=== PATIENT | male | born 1965 | race Caucasian/White ===

== ENCOUNTER 2017-09-13 16:25 | Emergency (ER) | payer MEDICARE, OTHER ==
[~2017-09-13] VITALS: Ht 175.3 cm; Wt 68.0 kg
[2017-09-13] MEDS ORDERED: LANTUS100 UNITS/ (16:35)
[2017-09-13] MEDS ORDERED: HUMALOG100 UNIT/1 (16:35)
--- NOTE | 2017-09-14 16:21 | EKG ---
[facility] [address] [facility] [place], [place] [address] Signed Normal sinus rhythm Normal ECG No previous ECGs available Confirmed by DEJAN RHODES MD ([id number]) on 09/14/2017 4:21:11 PM Electronically Signed By: DEJAN RHODES MD 09/14/17 1621 PATIENT NAME: MARY LINO Electrocardiogram DATE OF : 67 PHYSICIAN: DEJAN RHODES MD REPORT #: [id number] REPORT IS CONFIDENTIAL AND NOT TO BE RELEASED WITHOUT AUTHORIZATION
== END 2017-09-13 18:11 | disposition home or self-care (01) ==
LOC: ED 16:25
DX: R55 Syncope and collapse (principal); E11.9 Type 2 diabetes mellitus without complications; Z79.4 Long term (current) use of insulin
CPT/HCPCS: 70450; 80053; 81001; 84484; 85025; 93005; 93010; 99284; G0480; J7030

== ENCOUNTER 2019-01-26 15:11 | Emergency (ER) | payer MEDICARE, OTHER ==
[~2019-01-26] VITALS: Ht 175.3 cm; Wt 67.0 kg
[~2019-01-26 15:11] MED LIST: HUMALOG100 UNIT/1; LANTUS100 UNITS/
[2019-01-26] MEDS ORDERED: LISINOPRIL5 MG PO (15:36)
[2019-01-26] MEDS ORDERED: ATORVASTATIN CA10 MG PO (15:36)
[2019-01-26] MEDS ORDERED: KEFLEX500 MG PO (16:10)
== END 2019-01-26 16:18 | disposition home or self-care (01) ==
LOC: ED 15:11
DX: E10.622 Type 1 diabetes mellitus with other skin ulcer (principal); L97.519 Non-pressure chronic ulcer of other part of right foot with unspecified severity; L03.031 Cellulitis of right toe; Z79.4 Long term (current) use of insulin; Z79.899 Other long term (current) drug therapy
CPT/HCPCS: 99283

== ENCOUNTER 2019-02-12 02:00 | Observation (INO) | payer MEDICARE, OTHER ==
[~2019-02-12] VITALS: Ht 175.3 cm; Wt 63.7 kg
[~2019-02-12 02:00] MED LIST changes: +ATORVASTATIN CA10 MG PO; +KEFLEX500 MG PO; +LISINOPRIL5 MG PO
--- OUTSIDE RECORDS SUMMARY | 2019-02-12 02:02 | XMS ---
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 Dylan has no Care Guidelines for this patient. [place] VISIT COUNT (12 MO.) [address] [facility] TOTAL 2 NOTE: Visits indicate total known visits. ED/C VISIT TRACKING (12 MO.) 02/12/2019 02:[address] [facility] [place] TYPE: Emergency COMPLAINT: - DIABETIC ISSUE 01/26/2019 15:[address] [facility] [place] TYPE: Emergency COMPLAINT: - TOE PAIN, POSS INFECTION DIAGNOSES: - Cellulitis of right toe - Other mcc (current) drug therapy - Type 1 diabetes mellitus with other skin ulcer - Other specified soft tissue disorders - Non-pressure chronic ulcer of other part of right foot with unspecified severity - correction (current) use of insulin INPATIENT VISIT TRACKING (12 MO.) No inpatient visits to display in this time frame [email or web address]
--- NOTE | 2019-02-12 06:20 | NUR ---
PT ARRIVED ON FLOOR AT 0515. PT IS ORIENTED TO SELF,PLACE, . ALL LOBES ARE CLEAR, ABD SOUNDS ARE PRESENT. NOT EDEMA NOTED. PT IS A VERY POOR HISTORIAN. HOME MEDICATIONS ARE IN SAFE. PT AT THIS TIME IS RESTING. INSULIN DRIP AT THIS TIME AT 6UNITS/HR.
--- NOTE | 2019-02-12 08:00 | NUR ---
ASLEEP, SLEPT THROUGH ASSESSMENT AND ACCUCHECK. ACCUCHECK 240. INSULIN GTT DECREASED TO 5.1 PER PROTOCOL. IVF REMAIN AT 200 ML/HR.
--- NOTE | 2019-02-12 09:00 | NUR ---
ACCUCHECK 285. INSULINN GTT INCREASED T0 8.4 U/HR. RESTFUL.
--- NOTE | 2019-02-12 10:00 | NUR ---
dr. avalos aware of accucheck 159. ORDERS RECIEVED TO CHANGE IVF TO D51/2 NS AT 125 ANT NS AT 50 ML/HR. PATIENT IS MORE ALERT, COOPERATIVE. VOIDED 500 ML CLEAR JOSE ALFREDO URINE.
--- NOTE | 2019-02-12 11:00 | NUR ---
REMAINS ON Q 1 HR ACCUCHECKS. CURRENT ACCUCHECK-136. INSULIN GTT TO 1.6 UNITS/HR.
--- NOTE | 2019-02-12 12:00 | NUR ---
ASSESSMENT UNCHANGED. REMAINS VERY SLEEPY. DOESN'T AWAKEN WHEN ACCUCHECK DONE. CONTINUE TO TITATE INSULIN DRIP ACCORDING TO ACCUCHECK. INSULI GTT NOW AT 4.2 BLOOD SUGAR 216. IVF ARE NS AT 50 ML/HR AND D5 1/2 NS IS AT 125. RESP ARE EVEN AND NON LABORED.
--- NOTE | 2019-02-12 13:32 | NUR ---
BITA MORA SUGGESTED I COME BACK LATER. PT IS RESTING. WILL FOLLOW NEEDED
[2019-02-12] MEDS ORDERED: NOVOLOG FL100 UNIT/1 SUB-Q (15:00)
--- NOTE | 2019-02-12 17:00 | NUR ---
ACCUCHECK-135. INSULIN GTT DECREASED TO 0.8 UNITS/HR. PATIENT REMAINS VERY SLEEPY. NO DISTRESS NOTED. LAB RESULTS BACK. PHOS-1.6, K+3.4. DR. MELGAR AWARE LABS RESULTS ARE READY FOR VIEWING. PATIENT HAS ONLY VOIDED ONCE SO FAR HIS SHIFT. IVF CONTINUE TO INFUSE.
--- NOTE | 2019-02-12 18:00 | NUR ---
PO KCL 20 MEQ GIVEN. DENIES NAUSEA. DIFFICULT FOR ME TO UNDERSTAND WHAT PATIENT IS SAYING. HAS ONLY TAKEN FEW SIPS OF WATER TODAY. HAS BEEN SLEEPING MOST OF DAY. PATIENT DENIES NEED TO VOID. HAS VOIDED ONCE THIS SHIFT. IS POLITE AND COOPEATIVE. WARM BLANKET GIVEN.
[2019-02-12] MEDS ORDERED: LISINOPRIL5 MG PO (18:12)
--- NOTE | 2019-02-12 18:18 | NUR ---
Medications reconciled using pharmacy records. Patient is poor historian
--- NOTE | 2019-02-12 19:02 | NUR ---
no changes. INSULIN GTT TO 1.2 ACCUCHECK-179. SLEEPING. REPORT TO NEXT SHIFT.
--- NOTE | 2019-02-12 19:30 | NUR ---
RECEIVED REPORT AT 1900, PT WAS IN BED SLEEPING. PER MD MELGAR, PT WILL REMAIN ON INSULIN DRIP OVERNIGHT. PT OVERALL IS VERY SLEEPY. V/S ARE WDL.
--- NOTE | 2019-02-12 21:00 | NUR ---
SECOND IV SITED ESTABLISHED. PT IS STILL ONLY ORIENTED TO SELF, AND PLACE. OVERALL STRENGTH +4, URINE OUTPUT IS ADEQUATE SO FAR. ALL LOBES ARE CLEAR, ABD SOUNDS ARE PRESENT BUT TIME OF LAST BM IS UNKOWN STAED BY PT THIS EVENING. PT HAD A SMEAR OF VERY HARD STOOL THIS EVENING. V/S ARE WDL. WILL CONTINUE TO MONITOR.
--- NOTE | 2019-02-12 23:00 | NUR ---
SINCE START OF SHIFT INSULIN DRIP HAS REMAINED AT 1.2UNITS/HR. WITH BG RANGING FROM 181-186. PT DENIES HUNGER/THIRST. PT HAS BEEN SLEEPING SINCE START OF SHIFT AND MOST OF THE DAY STATED BY DAYSHIFT RN. NO NEW CONCERNS NOTED AT THIS TIME.
--- NOTE | 2019-02-13 00:25 | NUR ---
INSULIN DRIP INCREASED TO 2.8 UNITS/HR. FOR A BG OS 203. PT IS STILL VERY DROWSY/TIRED AND SLEEPING. STILL ORIENTED ONLY TO SELF//PLACE. PT IS STILL NOT INTERESTED IN DRINK/FOOD. PT STILL FEEELS VERY COLD OVERALL AND IS IN NEED OF WARM BLANKETS FREQUENTLY. LOBES ARE STILL CLEAR. TRACE EDEMA HAS BEEN NOTED IN BOTH HANDS/ANKLES/FEET. WILL CONTINUE TO MONOTOR. V/S ARE WDL, OTHERWISE NO OTHER CONCERNS NOTED.
--- NOTE | 2019-02-13 00:34 | NUR ---
SINCE PT IS HAVING SOME TRACE EDEMA IN BOTH HANDS/ANKLES/FEET, THE IV NS @50ML/HR WAS STOPPED. D5%1/2NS IS STILL RUNNING AT 125ML/HR.
--- NOTE | 2019-02-13 01:37 | NUR ---
PT AT THIS TIME IS SLEEPING. NO NEW CONCENRS NOTED.
--- NOTE | 2019-02-13 02:30 | NUR ---
PT IS SLEEPING.
--- NOTE | 2019-02-13 04:22 | NUR ---
PT NOW IS AWAKE AND WATCHING TV. PT STILL HAS NO WANT FOR DRINK/FOOD. TEMP AT THIS TIME IS 99.0 F. V/S OTHERWISE ARE WDL. ALL LOBES ARE CLEAR. AN INSENTIVE SPIROMETER WAS GIVEN TO PT. NO OTHER CHANGES NOTED IN PT ASSESSMENT.
--- NOTE | 2019-02-13 06:36 | NUR ---
PT OVERALL HAD AN UNEVENTFUL NIGHT. V/S WERE WDL. AT 0400 PT HAD A TEMP OF 99.0 F BUT AT THIS TIME, TEMP AT THIS TIME IS WDL. URINE OUTPUT HAS BEEN ADEQUATE. LOBES HAVE REMAINED CLEAR, PT HAS SOME TRACE EDEMA PRESENT SINCE 0000 IN HIS HANDS/ANKLES/FEET. NS @ 5ML/HR WAS STOPPED AT THAT TIME. PT HAS REMAINED ORIENTED TO SELF//PLACE ALL SHIFT. AT AROUND O5OO PT REQUESTED SOME JELLO AND STATED THAT HE WAS HUNGRY. PO INTAKE THIS SHIFT WAS NON-EXISTENT. AT 0600 BG WAS 87 AND INSULIN DRIP/D5% 1/2NS WAS STOPPED. PT AT THIS TIME IS SALINE LOCKED. MD MELGAR WILL BE INFORMED AROUND 0700.
--- NOTE | 2019-02-13 08:00 | NUR ---
PATIENT AWAKE IN BED IN HIGH-FOWLERS. PATIENT ORIENTED TO PERSON, , AND PLACE. STATES HE IS IN HOSPITAL BECAUSE HE'S "SICK." BOTH IV SITES FLUSH WELL AND DRAW BLOOD. TRACE EDEMA NOTED IN BILATERAL LOWER EXTREMITIES. BS OF 206, 3 UNITS OF LISPRO GIVEN. PATIENT BREAKFAST DELIVERED. DIRT NOTICIED ON SOLES OF PATIENTS FEET, PATIENT TO RECEIVE SHOWER TODAY. PLAN OF CARE IS TO CONTINUE MONITORING PATIENTS BLOOD SUGAR AND ELECTROLYTE LEVELS. PATIENT DENIES ANY FURTHER NEED AT THIS TIME. CALL LIGHT WITHIN REACH.
--- NOTE | 2019-02-13 09:13 | NUR ---
DR. MELGAR IN ROOM TO SEE PATIENT AT THIS TIME. PT CONTINUES TO EAT HIS BREAKFAST.
--- NOTE | 2019-02-13 09:46 | NUR ---
CASE MANAGEMENT IN ROOM WITH PATIENT.
--- NOTE | 2019-02-13 10:50 | NUR ---
WHILE TALKING WITH THE PT, HE WOULD TEND TO SAY ONE THING THEN TURN AROUND AND SAY SOMETHING ELSE ABOUT THE SAME THING. I AM UNSURE OF THE PT ABILITY TO CARE FOR HIMSELF, TAKE HIS MEDS CORRECTLY, IF HE IS UNABLE TO FINANCIALLY CARE FOR HIMSELF, YET PT STATES THAT HE TAKES CARE OF THESE THINGS ON HIS OWN. AFTER TALKING WITH THE PT HE SEEMED TO BECOME MORE AGITATED, SO I LEFT THE ROOM. I CALLED LUZ MARIA HICKMAN NP, HER NURSE AGUS STATED THAT THEY HAD ONLY SEEN HIM 3 TIMES IN FULL ONCE IN LATE 2016, THEN DEC 2017, AND THE LAST TIME THEY SAW HIM WAS 07/2018, SHE STATED HE HAD A COOK SHORT ORDER WITH HIM WHEN HE CAME IN IN Dec BUT SHE STATED THEY WERE CUTTING HER HOURS OUT AND SHE WAS STATING SHE WAS STILL GOING TO FOLLOW UP WITH HIM. AGUS STATED THAT THE PT IS MENTALLY HANDICAPPED, BUT KNOWS OF NO INVOLVEMENT WITH [facility]. I CALLED [facility] AGING PEOPLE WITH DISABILITIES AND THEY STATED THAT HE IS NOT IN THEIR SYSTEM. WILL CONTINUE TO FOLLOW PT DURING HIS STAY IN THE HOSPITAL. UPON DC WILL SEE ABOUT HAVING HOMEHEALTH RN, AND A CHW FOLLOW PT.
--- NOTE | 2019-02-13 11:09 | NUR ---
DISCUSSED WITH CLASSIFIED ADVERTISING SUPERVISOR PATIENT'S SOCIAL SITUATION REGARDING HIS HOME AND HIS CURRENT LIVING SITUATION. PATIENT HAS BEEN HARD TO UNDERSTAND WITH HIS SPEECH BUT HAS EXPRESSED TO US THAT HE MOSTLY CARES FOR HIMSELF, BUT DOES HAVE A PERSON WHO LIVES WITH HIM. PATIENT STATES THIS PERSON IS "MENTALLY HANDICAPPED HIMSELF," AND ON "DISABILITY." PATIENT QUESTIONED WHILE DR. MELGAR IN ROOM ABOUT HIS HOME MEDICATIONS. PATIENT REPEATS, "I TAKE THAT NOVOLOG OR HUMALOG ON A SLIDING SCALE." WHEN ASKED IF HE TAKES A LONG ACTING INSULIN, PATIENT IS NOT ABLE TO STATE IF HE DOES OR DOES NOT. PATIENT THEN ASKED ABOUT HIS GLUCOMETER AND HE STATES, "IT'S A PIECE OF JUNK. CAN YOU GUYS GET ME A NEW ONE HERE?" DIABETIC EDUCATION CONSULTATION HAS BEEN PLACED. WILL CONTINUE TO WORK WITH PATIENT REGARDING USE OF HOME INSULIN AND WILL HAVE PATIENT SHOW COMPETENCE IN THIS SKILL BEFORE HE GOES HOME.
--- NOTE | 2019-02-13 11:30 | NUR ---
PATIENT AMBULATED TO CHAIR WITH A 2-PERSON ASSIST IN ORDER TO ASSESS HIS MOBILITY STATUS. PATIENT DISPLAYS GENERALIZED WEAKNESS BUT IS STEADY ON HIS FEET. POTASSIUM PHOSPHATE STILL INFUSING AT 106 MLS/HR. PATIENT GIVEN WARM BLANKET AND DENIES NO FURTHER NEED AT THIS TIME. CALL LIGHT WITHIN REACH.
--- NOTE | 2019-02-13 11:45 | NUR ---
PATIENT LUNCH DELIVERED. BS OF 235, 5 UNITS OF INSULIN GIVEN.
--- NOTE | 2019-02-13 12:00 | NUR ---
PATIENT STATES HIS "TUMMY FEELS UPSET." PATIENTS BOWEL TONES ACTIVE AND DENIES NEED TO HAVE A BOWEL MOVEMENT. PATIENT EDUCATED THAT SINCE HE HASN'T EATEN MUCH THE LAST FEW DAYS, AND HE HAD A BIG BREAKFAST TODAY, THAT HIS STOMACH MAY BE UPSET SINCE HE IS RE-INTRODUCING FOODS. PATIENT DENIES HAVING NAUSEA BUT GIVEN EMESIS BAG IN CASE. PATIENT DENIES ANY FURTHER NEEDS AT THIS TIME, CALL LIGHT WITHIN REACH.
--- NOTE | 2019-02-13 14:35 | NUR ---
PATIENT AMBULATED TO SHOWER WITH 2-PERSON STANDBY ASSIST. PATIENTS IV INFUSION OF POTASSIUM PHOSPHATE PUT ON STANDBY DURING SHOWER. DIRT ON PATIENTS FACE AND NECK WASHED OFF. PATIENT OFFERED TO HAVE JOINER TRIMMED OR SHAVED BUT IS UNINTERESTED. PATIENT AMBULATED BACK TO CHAIR AND STATED THAT THE IV IN HIS LEFT HAND WAS PAINFUL. IV SITE FLUSHES WELL AND HAS BLOOD RETURN. PATIENTS INFUSION OF POTASSIUM PHOSPHATE SWITCHED TO THE IV IN HIS RIGHT WRIST. WILL CONTINUE TO MONITOR THE LEFT IV SITE. PATIENT COMBED HAIR AND BRUSHED TEETH. PATIENT DENIES ANY FURTHER NEED AT THIS TIME, CALL LIGHT WITHIN REACH.
--- NOTE | 2019-02-13 16:41 | NUR ---
PATIENT TRANSFERRED TO MEDICAL-SURGICAL FLOOR AND AMBULATED TO NEW ROOM. ALL OF PATIENTS PERSONAL BELONGINGS BROUGHT WITH HIM. VERBAL HANDOFF REPORT DELIVERED TO BITA OVERTON. PATIENT DENIES ANY FURTHER NEEDS AT THIS TIME AND HAS NO QUESTIONS FOR THE RNS. PATIENT SITTING IN HIS CHAIR, CALL LIGHT WITHIN REACH.
--- NOTE | 2019-02-13 16:53 | NUR ---
PT ARRIVED TO UNIT FROM CCU. PT ALERT AND ORIENTED. DENIE PAIN, NAUSEA, SOB, OR OTHER CONCERNS. VS OBTAINED. PT SITTING UP IN RECLINER. FRESH WATER AT BEDSIDE. ASSESSMENT COMPLETED. CALL LIGHT WITHIN REACH.
--- NOTE | 2019-02-13 18:35 | NUR ---
PT SITTING UP IN RECLINER EATING DINNER INDEPENDENTLY. DENIES NEEDS OR CONCERNS AT THIS TIME. CALL LIGHT WITHIN REACH.
--- NOTE | 2019-02-13 18:41 | NUR ---
PATIENT SITTING CHAIR EATING DINNER. CALL LIGHT IN REACH. NO FURTHER NEEDS AT THIS TIME.
--- NOTE | 2019-02-13 19:45 | NUR ---
PATIENT HAS BEEN SITTING UP IN THE ARM CHAIR WATCHING TV. 1 PERSON SBA TO USE THE URINAL AND VOIDED 700MLS. PATIENT NOW IN BED. GIVEN A COUPLE WARM BLANKETS AND GIVEN CALL LIGHT. PATIENT GOING TO TRY AND GET SOME REST.
--- NOTE | 2019-02-13 21:19 | NUR ---
PATIENT GIVEN EVENING MEDS AND 5 UNITS INSULIN SQ FOR EVENING BLOOD SUGAR. PATIENT GOING TO GO BACK TO SLEEP.
--- NOTE | 2019-02-13 23:17 | NUR ---
PATIENT RESTING ON HIS RIGHT SIDE AND EYES ARE CLOSED. CALL LIGHT IN REACH AND RESPIRATIONS ARE REGULAR AND EVEN AT 16.
--- NOTE | 2019-02-14 00:12 | NUR ---
PATIENT IS ON HIS LEFT SIDE, RESTING WITH EYES CLOSED AND REGULAR AND EVEN RESPIRATIONS. RESPS=16.
--- NOTE | 2019-02-14 02:14 | NUR ---
PATIENT RESTING ON HIS LEFT SIDE RESPIRATIONS REGULAR AND EVEN, EYES CLOSED, PATIENT IN NO DISTRESS.
--- NOTE | 2019-02-14 03:58 | NUR ---
PATIENT IS STILL RESTING QUIETLY ON HIS LEFT SIDE, EYES CLOSED, RESPIRATIONS REGULAR AND EVEN AT 16. CALL LIGHT IN REACH.
--- NOTE | 2019-02-14 06:40 | NUR ---
PATIENT RESTED QUIETLY ALL NIGHT WITH NO COMPLAINTS AND NO REQUESTS.
--- NOTE | 2019-02-14 07:51 | NUR ---
Pt sleeping at this time, respirations even and non labored. Pt is on ra. Personal supplies and call light within reach. No needs at this time.
[2019-02-14] MEDS ORDERED: FREESTYLE LITE1 EAC1 XX (11:33)
[2019-02-14] MEDS ORDERED: FREESTYLE FREE1 EAC1 MISC (11:34)
[2019-02-14] MEDS ORDERED: INSULIN SYRING1 EA47 MISC (11:36)
[2019-02-14] MEDS ORDERED: LANTUS SOL100 UNIT/1 SUB-Q (11:37)
--- NOTE | 2019-02-14 12:03 | NUR ---
FAXED DISCHARGE SUMMARY TO LUZ MARIA HICKMAN, PATIENTS PCP FOR FOLLOW UP CARE
== END 2019-02-14 14:13 | disposition home or self-care (01) ==
LOC: ED 02:00 → CCU 02:01 → MS 02-13 16:25
PROVIDERS: ADMIT Internal Medicine
DX: E10.11 Type 1 diabetes mellitus with ketoacidosis with coma (principal); I10 Essential (primary) hypertension; E78.5 Hyperlipidemia, unspecified; E86.0 Dehydration; E87.5 Hyperkalemia; Z91.14 Patient's other noncompliance with medication regimen; Z79.4 Long term (current) use of insulin; Z79.899 Other long term (current) drug therapy
CPT/HCPCS: 36415; 71045; 80048; 80053; 81001; 82010; 82800; 83690; 83735; 83930; 84100; 85007; 85025; 96361; 96365; 96366; 96367; 96368; 96374; 96376; 99285-25; G0378; J1815; J2405; J3475; J3480; J7030; J7042; J7060